=== PATIENT | female | born 1935 | race Caucasian/White ===

== ENCOUNTER 2023-05-14 13:40 | Inpatient (IN) | payer OTHER, SELFPAY ==
[2023-05-14] VITALS (14 sets, daily range): BP systolic 126–177; BP diastolic 53–158; BMI 28.5
--- NOTE | 2023-05-14 11:16 | W.PN.CARDCBS ---
Today's Communication / Plan
-
PPM implant
Impression / Plan
-
PCP: Rosana Adames DO
CDY: David Rodriguez MD (new to [facility])
88y/o, presented to [facility] ER on 05/12 w/syncope while in the shower with associated LH. She lowered herself to the floor and believes she had LOC. She admits to a 2-3 month history of multiple syncopal events with LOC, for which she has not sought out
medical care. 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 PMH only sig for OA and takes no prescription medications. CT head without ICH/fracture, CXR NAD, CTA chest without PE. Transferred for DC PPM
implant today.
IMPRESSION:
Syncope
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
Bradycardia
PLAN:
Multiple syncopal events over the past 2-3 months w/o workup
DC PPM implant today
Echo if not done at [facility]
monitor tele post op
CXR post procedure
activity limitations as instructed
Incision check this week at [facility]
Anticipate home in AM
Progress Note - Conveyor Man
Subjective
Date of Service: May 14, 2023
Physical Exam
Physical Exam
deferred- placed on EP lab table immediately
--- NOTE | 2023-05-14 13:38 | ITS.CL.PACE ---
Pharm Tech - Pacemaker Implant
Pacemaker Implant
Procedure Report:
PACEMAKER IMPLANT REPORT
Primary Care Physician: Dr. Rosana Adames
Primary Electric Relay Tester: Dr. David Rodriguez
Date of Procedure: May 14, 2023
Procedure:
1: Dual chamber pacemaker implantation with fluoroscopic guidance
Indication/Diagnosis:
1: Non-reversible symptomatic bradycardia due to: third degree AV block.
History: The patient is an 88-year-old woman who presents with symptomatic bradycardia and intermittent third-degree AV block with a narrow junctional escape.
Antibiotic: Ancef 2 g IV
Sedation: Conscious sedation as per anesthesia staff
Description of Procedure: After informed consent was obtained, 'time out' was called and confirmed, the patient was prepped and draped in a sterile fashion. Lidocaine with epinephrine was used for local anesthesia. Central venous access was
obtained via subclavian venopuncture after a venogram from the left arm confirmed subclavian patency. An incision was made along the left chest and a pre-pectoral pocket was formed. Using a Seldinger technique and peel-away sheaths, the pacing
leads were placed under fluoroscopic guidance. Once testing (see below) showed adequate and stable function, the leads were secured using the suture sleeves. The pocket was liberally irrigated with antibiotic solution. The leads were connected to
the generator header and the leads and generator were placed within the pocket. Fluoroscopy confirmed stable lead position. The pocket was closed in the typical fashion.
IMPLANTS:
Company: [employer] [id number], SN: [id number] left Pectoral
RA: [employer]onic 5076-45, SN: [id number], RAA
RV: [employer] 5076�52, SN: [id number], RV apical septum
DEVICE TESTING:
Sensing: RA 3.8 mV, RV 10.3 mV
Capture: RA 0.8 V@0.4ms, RV 1.3 V@0.4ms
Ohms: RA 551, RV 665
FINAL PROGRAMMING
Jose A Pacing: DDDR 60-130 ppm
Complications: None.
Fluoroscopy Time (min): 10.4
Radiation Dose (mGy): 34
DAP (Gy.cm2): 4.0
CONCLUSIONS:
1: Successful implant of dual chamber permanent pacemaker
RECOMMENDATIONS:
1. Routine post-op care (tele, CXR, arm sling).
2. In-Office wound check within 7 days.
3. Office interrogation within 4 weeks.
Copy to: Dr. Rosana Adames
--- NOTE | 2023-05-14 16:14 | PTCARENOTE ---
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 no hematoma with Left arm immobilizer in place. VS done as per protocol. Pt denies pain, denies sob. Pt V-paced on monitor. Pt sent for CXR at this time. See worklist for VS/I and O and
assessments.
--- NOTE | 2023-05-14 16:35 | CM ---
spoke to pt in room, she is prev indep, lives in an apt alone, no steps to enter. she uses a walker when needed. she denies any dc planning needs. plan is for dc to home when medically stable.
[2023-05-14] MEDS: ANCEF 5 IV (18:27)
[2023-05-14] MEDS: TYLENOL 650 MG PO (18:28)
--- NOTE | 2023-05-14 19:35 | PTCARENOTE ---
Pt ambulating to bathroom with rolling walker and one person assist. Fall precautions maintained. CXR done in radiology. Tylenol given for left chest pain.
[2023-05-14] MEDS: LUMIGAN 0.01% 1 DROP OPHTH (22:35)
[2023-05-15] MEDS: ANCEF 5 IV (03:14)
[2023-05-15 03:15] VITALS: BMI 29.1
[2023-05-15 03:22] VITALS: BP 156/65
--- NOTE | 2023-05-15 03:58 | PTCARENOTE ---
patient slept well overnight. Vpaced on tele 60s. bp 156/65. denies any pain at this time. ambulated to the BR with a standby assist and the walker, steady on her feet. denies any lightheadedness/dizziness. L chest site CDI. no new drainage, soft
around site. L arm immobilizer. reviewed activity restrictions with patient and verbalized understanding. call santana within reach. calls appropriately.
[2023-05-15 04:11] LABS: Hematocrit 36.4 % (37.0-47.0); Mean Corpuscular Hgb 31.5 pg (27.0-31.0); Mean Corpuscular Volume 95.5 fL (81.0-99.0); Mean Platelet Volume 11.9 fL (7.4-10.4); Platelet Count 159 10^3/uL (130-400); Red Blood Cell Count 3.81 10^6/uL (4.20-5.40); Red Cell Dist. Width 14.6 % (11.5-14.5); White Blood Cell Count 7.8 10^3/uL (4.8-10.8)
[2023-05-15 04:35] LABS: Blood Urea Nitrogen 21 mg/dl (7-17); Calcium 9.1 mg/dl (8.4-10.2); Carbon Dioxide 24 mmol/L (22-30); Chloride 108 mmol/L (98-107); Estimated Creatinine Clearance 46 ml/min; Glucose 98 mg/dl (70-99); Potassium 4.6 mmol/L (3.5-5.1); Sodium 139 mmol/L (135-145); eGFR > 60.00
--- NOTE | 2023-05-15 06:46 | PTCARENOTE ---
[employer] transmission completed.
[2023-05-15 07:39] VITALS: BP 158/62
--- NOTE | 2023-05-15 09:43 | W.PN.CARDCBS ---
Addendum entered and electronically signed by Dimitri Simeon MD 05/15/23 11:43:
I saw and examined the patient.
The Fluorescent Lighting Model Maker's note was reviewed and I agree with the note.
Comment: Briefly, 88-year-old woman presenting to [facility] following an episode of syncope initially found to be in sinus bradycardia and subsequently had periods of second-degree AV block
Now status post permanent pacemaker on 05/14/23
She feels well today, no cardiac complaints
Permanent pacemaker site clean dry intact
Telemetry with a sensed, V paced rhythm
Check transthoracic echocardiogram
Tentative plan for discharge later today
Original Note:
Today's Communication / Plan
-
Echo today
wound check at [facility] in AM
home today
Impression / Plan
-
PCP: Rosana Adames DO
CDY: David Rodriguez MD (new to [facility])
88y/o, presented to [facility] ER on 05/12 w/syncope while in the shower with associated LH. She lowered herself to the floor and believes she had LOC. She admits to a 2-3 month history of multiple syncopal events with LOC, for which she has not sought out
medical care. 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 PMH only sig for OA and takes no prescription medications. CT head without ICH/fracture, CXR NAD, CTA chest without PE.
IMPRESSION:
Syncope
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
Bradycardia
s/p DC PPM implant, 05/14/23
Hypertension
PLAN:
Multiple syncopal events over the past 2-3 months w/o workup
s/p DC PPM implant
Tele- V/AVPaced w/underlying SR
Post CXR w/stable lead position, no pneumothorax, left basilar atelectasis
Activity limtations reviewed
Echo today prior to d/c
Wound check tomorrow at [facility] and followup with Dr. Rodriguez thereafter
Modestly elevated BP 150s- she is not on any meds- will have BP check tomorrow and in followup- primary cards to manage
Home today
Progress Note - Supervisor [employer]
Subjective
Date of Service: May 15, 2023
Mild incisional pain, relieved with tylenol
oob ambulating
denies cp/palps/dyspnea
Objective
Labs:
05/15/23 03:19
05/15/23 03:19
Labs
Hgb 12.0 g/dL (12.0-16.0) 05/15/23 03:19
Hct 36.4 % (37.0-47.0) L 05/15/23 03:19
Plt Count 159 10^3/uL (130-400) 05/15/23 03:19
Sodium 139 mmol/L (135-145) 05/15/23 03:19
Potassium 4.6 mmol/L (3.5-5.1) 05/15/23 03:19
BUN 21 mg/dl (7-17) H 05/15/23 03:19
Creatinine 0.9 mg/dL (0.6-1.0) 05/15/23 03:19
Glucose 98 mg/dl (70-99) 05/15/23 03:19
Vital Signs and I&O:
Vital Signs
Temp Pulse Resp BP Pulse Ox
98.3 F 63 18 156/65 93
05/15/23 07:39 05/15/23 07:39 05/15/23 07:39 05/15/23 03:22 05/15/23 07:39
Vital Signs
Temp Pulse Resp BP Pulse Ox
98.3 F 63 18 156/65 93
05/15/23 07:39 05/15/23 07:39 05/15/23 07:39 05/15/23 03:22 05/15/23 07:39
Intake & Output
05/13/23 05/14/23 05/15/23 05/16/23
06:59 06:59 06:59 06:59
Intake Total 1000 / 1000 240 / 240
Balance 1000 / 1000 240 / 240
Physical Exam
Physical Exam
AAOx3, MAEE 5/5
RRR S1 S2 no murmurs
CTA bilat, non labored
soft abd, + bs
left ACW w/aquacel dressing CDI, no ht/bleeding
bilat extremities w/palpable distal pulses, no edema
--- NOTE | 2023-05-15 10:01 | PTCARENOTE ---
Pt received from roving marker RN. Hector3, OOB in chair. V paced on manager monitoring 60-70s. VSS. LCW dressing CDI. Assessment documented. Plan for echo and d/c home today.
--- NOTE | 2023-05-15 10:44 | W.DS.TRANS ---
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
-
Discharge Instructions:
Discharge Diagnosis/Procedures Pacemaker implant
Diet Regular
Driving Restrictions No driving for 1 week
Bathing Restrictions OK to Shower
Instructions:
Stand-Alone Forms: DC Inst - Implanted Device
Changes to Home Medications: No
Discharge Medications:
DC Medications w/original date entered in [facility]
bimatoprost 0.01 % eye drops (Lumigan) 1 drp ophthalmic (eye) HS Eye Condition 05/14/23
Home Medication Changes
Pending Results: Yes
Additional Pending Results:
Echocardiogram done day of discharge, results pending
[2023-05-15 11:37] VITALS: BP 167/67
== END 2023-05-15 14:18 | disposition home or self-care (01) | DRG 244 ==
LOC: IVU 13:40
PROVIDERS: Nurse Practitioner; ADMITTING PHYSICIAN Internal Medicine Interventional Cardiology; FAMILY PHYSICIAN Family Medicine
PROC: 02H63JZ Insertion of Pacemaker Lead into Right Atrium, Percutaneous Approach (ICD-10-PCS; 2023-05-14)
PROC: 0JH606Z Insertion of Pacemaker, Dual Chamber into Chest Subcutaneous Tissue and Fascia, Open Approach (ICD-10-PCS; 2023-05-14)
PROC: 02HK3JZ Insertion of Pacemaker Lead into Right Ventricle, Percutaneous Approach (ICD-10-PCS; 2023-05-14)
DX: I44.2 Atrioventricular block, complete (principal); I10 Essential (primary) hypertension; M19.90 Unspecified osteoarthritis, unspecified site
CPT/HCPCS: 33208; 71045; 80048; 85027; 93005; 93306; C1769; C1785; C1887; C1892; C1898